=== PATIENT | female | born 1980 | race African-American/Black ===

== ENCOUNTER 2020-02-21 18:33 | Emergency (ER) | payer MEDICAID ==
[~2020-02-21] VITALS: Ht 162.6 cm; Wt 78.0 kg
[2020-02-21 20:14] LABS: BASOPHILS % 1.2 % (0.0-2.0); EOSINOPHILS % 2.2 % (0.0-5.0); HEMATOCRIT. 44.7 % (36.0-48.0); HEMOGLOBIN. 15.4 g/dL (12.0-16.0); LYMPHOCYTES % 42.4 % (20.0-50.0); MEAN CORPUSCULAR HEMOGLOBIN 31.6 pg (28.0-32.0); MEAN CORPUSCULAR VOLUME 92.1 fL (81.0-99.0); MEAN PLATELET VOLUME 7.8 fl (7.4-10.4); MONOCYTES % 10.8 % (2.0-8.0); NEUTROPHILS % 43.4 % (40.0-76.0); PLATELET 234 x1000/uL (130-400); RED BLOOD CELL COUNT 4.85 mill/uL (4.2-5.4); RED CELL DISTRIBUTION WIDTH 13.9 % (11.6-14.6)
[2020-02-21] MEDS ORDERED: OLANZAPINE 5MG TABLET ODT PO ONE (20:15)
[2020-02-21] MEDS ORDERED: LORAZEPAM 1MG TABLET PO ONE (20:15)
[2020-02-21 20:17] LABS: CHLORIDE 111 mEq/L (98-107)
[2020-02-21 20:21] LABS: ETHANOL BLOOD < 10 mg/dL
[2020-02-21 20:25] LABS: HCG SCREEN NEGATIVE
[2020-02-21] MEDS ORDERED: POTASSIUM CHLORIDE 20MEQ TABLET SR PO ONE (20:45)
[2020-02-21 21:10] LABS: KETONES URINE TRACE (NEGATIVE); LEUKOCYTE ESTERASE URINE TRACE (NEGATIVE); NITRITE URINE NEGATIVE (NEGATIVE); OCCULT BLOOD URINE 3+ (NEGATIVE); PH URINE 5.5 (4.5-8.0); PROTEIN URINE 1+ (NEGATIVE); SPECIFIC GRAVITY URINE 1.023 (1.005-1.030)
[2020-02-21 21:21] LABS: CLARITY URINE CLOUDY (CLEAR); COLOR URINE YELLOW (YELLOW)
[2020-02-21 21:24] LABS: *AMPHETAMINES SCREEN URINE NEGATIVE (NEGATIVE); *BARBITURATES SCREEN URINE NEGATIVE (NEGATIVE); *BENZODIAZEPINES SCREEN URINE NEGATIVE (NEGATIVE); *COCAINE SCREEN URINE NEGATIVE (NEGATIVE)
[2020-02-21 21:25] LABS: CANNABINOID URINE SCREEN NEGATIVE (NEGATIVE); METHADONE URINE SCREEN NEGATIVE (NEGATIVE); OPIATES URINE SCREEN NEGATIVE (NEGATIVE); PHENCYCLIDINE URINE SCREEN NEGATIVE (NEGATIVE)
[2020-02-22] MEDS ORDERED: AMLODIPINE 5MG TABLET PO ONE ×2 (22:00→23:45)
[2020-02-23] MEDS ORDERED: QUETIAPINE FUMARATE 50MG TABLET PO STA (00:22)
[2020-02-23] MEDS ORDERED: CLONIDINE 0.1MG TABLET PO ONE (02:30)
[2020-02-23] MEDS ORDERED: CLONIDINE 0.2MG TABLET PO ONE (03:45)
[2020-02-23] MEDS: AMLODIPINE 5MG TABLET PO SCH (08:23)
[2020-02-23] MEDS ORDERED: HYDRALAZINE 20MG/ML VIAL IV ONE (22:30)
[2020-02-24] MEDS ORDERED: HYDRALAZINE 20MG/ML VIAL IV ONE (02:15)
[2020-02-24] MEDS ORDERED: HYDRALAZINE HCL 25MG TABLET PO ONE (02:15)
[2020-02-24] MEDS: AMLODIPINE 5MG TABLET PO SCH (09:09)
[2020-02-24 22:00] VITALS: BP 146/102
== END 2020-02-24 22:40 ==
LOC: ER 18:33 → EDBD 18:33 → ER 02-24 22:40
DX: Z03.818 Encounter for observation for suspected exposure to other biological agents ruled out (principal); R45.851 Suicidal ideations; R44.0 Auditory hallucinations; Z82.49 Family history of ischemic heart disease and other diseases of the circulatory system; E11.9 Type 2 diabetes mellitus without complications; I10 Essential (primary) hypertension; F20.9 Schizophrenia, unspecified; Z90.49 Acquired absence of other specified parts of digestive tract; Z91.19 Patient's noncompliance with other medical treatment and regimen
CPT/HCPCS: 36415; 80053; 80305; 80307; 80320; 80329; 81003; 81025; 84703; 85025; 93005; 99285; C9803; Z7610; G0480